=== PATIENT | female | born 1980 | race Caucasian/White ===

== ENCOUNTER 2017-03-14 12:07 | Emergency (ER) | payer OTHER ==
[~2017-03-14] VITALS: Ht 160 cm; Wt 77.1 kg
[2017-03-14 12:37] LABS: URINE BILIRUBIN NEGATIVE (Negative); URINE BLOOD NEGATIVE (Negative); URINE COLOR YELLOW; URINE GLUCOSE-RANDOM* NEGATIVE (Negative); URINE KETONES NEGATIVE (Negative); URINE PROTEIN (DIPSTICK) NEGATIVE (Negative); URINE SPECIFIC GRAVITY 1.015 (1.003-1.035); URINE UROBILINOGEN 0.2 E.U./dl (0.2-1.0)
[2017-03-14 12:50] LABS: URINE LEUKOCYTES-REFLEX 1+ (Negative)
[2017-03-14 12:57] LABS: CASTS None Seen /LPF (None Seen); SQUAMOUS >10 Many /LPF (0-3)
[2017-03-14 12:59] LABS: CRYSTALS None Seen /LPF (None Seen); URINE RBC None Seen /HPF (0-2); URINE WBC-REFLEX 6-15 Few /HPF (0-5)
[2017-03-14 13:20] LABS: ABSOLUTE NEUTROPHILS 9.6 thou/uL (1.4-8.2); BASOPHILS 0.6 % (0.0-2.0); EOSINOPHILS 1.9 % (0.0-3.0); HEMATOCRIT 45.4 % (37.0-47.0); HEMOGLOBIN 15.4 gm/dL (12.0-15.0); LYMPHOCYTES 22.8 % (24.0-44.0); MCH 31.1 pg (26.0-34.0); MCV 91.4 fL (80.0-100.0); MONOCYTES 4.9 % (1.0-8.0); PLATELET COUNT 259 thou/uL (150-400); POLYS 69.8 % (36.0-66.0); RBC 4.97 mil/uL (4.20-5.00); RDW 13.5 % (10.5-14.5); WBC 13.7 thou/uL (4.0-11.0)
[2017-03-14 13:22] LABS: MANUAL DIFF NO
[2017-03-14 13:42] LABS: CREATININE 0.8 mg/dL (0.6-1.0); POTASSIUM 4.1 mmol/L (3.5-5.1)
[2017-03-14 13:47] LABS: ALBUMIN 4.3 g/dL (3.4-5.0); TOTAL BILIRUBIN 0.5 mg/dL (<0.1-1.0); TOTAL PROTEIN 7.7 g/dL (6.4-8.2)
[2017-03-14] MEDS ORDERED: ZOFRAN ODT4 M1 PO (14:06)
[2017-03-14] MEDS ORDERED: NOHOMEMEDICATIONS (14:14)
[2017-03-14 14:29] VITALS: BP 126/69
== END 2017-03-14 14:30 | disposition home or self-care (01) ==
LOC: ER 12:07
PROVIDERS: Physician Assistant
DX: K80.50 Calculus of bile duct without cholangitis or cholecystitis without obstruction (principal); R10.11 Right upper quadrant pain; F10.99 Alcohol use, unspecified with unspecified alcohol-induced disorder

== ENCOUNTER 2017-03-20 06:48 | Day surgery (SDC) | payer OTHER ==
[~2017-03-20] VITALS: Ht 160 cm; Wt 77.1 kg
--- NOTE | ~2017-03-20 | O ---
[facility] [place] [address] OPERATIVE REPORT Name: KEITH NUNEZ Room #: DEP [facility]#: [id number] Admission: 03/20/17 Attend Phys: Varun Obregon MD, F Discharge: 03/20/17 Date of : 76 Report #: [id number] THIS REPORT FOR: //name// CC: Varun PUCKETT DATE OF SERVICE: 03/20/2017 PREOPERATIVE DIAGNOSES: Subacute and chronic cholecystitis with cholelithiasis. POSTOPERATIVE DIAGNOSES: Subacute and chronic cholecystitis with cholelithiasis. OPERATIVE PROCEDURE: Laparoscopic cholecystectomy with intraoperative cholangiogram. SURGEON: Varun Obregon MD. ER TECH: Markell Gandhi MD. SECOND CERTIFIED MEDICATION TECHNICIAN: ISAEL Majano. INDICATIONS: A 36-year-old lady with 5 days of right upper quadrant pain. An ultrasound positive for cholelithiasis. Her liver function tests are within normal limits. OPERATIVE PROCEDURE: The patient had a thorough discussion of procedure, benefits and risks in the office as well as the preoperative area. She gave informed consent to proceed. She was given preoperative IV antibiotics. She was brought to the operating room suite and had satisfactory induction of general endotracheal anesthesia. After appropriate prep and drape with DuraPrep solution, an appropriate timeout was then performed. 0.5% plain Naropin was utilized at all trocar sites, 30 mL was utilized during the procedure. Initially, an open cutdown procedure was performed to the infraumbilical port site. The 5 mm trocar was placed. Pneumoperitoneum was performed, initiated. An upper midline 5 mm trocar port was placed under direct vision. Two lateral 5 mm trocar ports were placed under direct vision. Photographs were taken and made part of the medical record. The gallbladder was retracted cephalad and laterally. The cystic duct triangle was clearly delineated. The cystic duct was milked in retrograde manner toward the gallbladder. A clip was placed toward the gallbladder. A cystotomy was performed in the cystic duct. The taut catheter was utilized to perform an intraoperative cholangiogram which demonstrated free flow of contrast in the duodenum. There were no filling defects. There was proper visualization of the common hepatic duct and the right and left hepatic ducts. The taut catheter was removed. The cystic duct was triply ligated and then divided with Sonicision. The cystic artery was [address] [address] OPERATIVE REPORT Name: KEITH NUNEZ [id number] Admission: 03/20/17 Attend Phys: Varun Obregon MD, F Discharge: 03/20/17 Date of : 76 Report #: [id number] identified, clipped proximally and divided with Sonicision. The gallbladder was resected from the fossa without difficulty. It was placed into an Endobag and removed from the peritoneal cavity, 0 PDS suture was placed in a [id number] fashion at the infraumbilical port site under direct vision. After a final inspection of the cholecystectomy site, hemostasis was complete. Photographs were taken and made part of the medical record. The trocars were then removed under direct vision. The midline infraumbilical port was removed. The 0 PDS suture ligated in place. Skin margins were approximated with subcuticular 4-0 Monocryl. Dermabond was applied. The estimated blood loss was less than 10 mL. The patient tolerated procedure well. She returned to recovery room in stable and satisfactory condition. Her desire was to go home from the Outpatient Department and this would seem appropriate at this time. <ELECTRONICALLY SIGNED> By: Varun Obregon MD, FACS 03/21/17 [id number] [id number] Varun Obregon MD, FACS /nt
--- NOTE | ~2017-03-20 | S ---
[facility] [place] [address] SURGICAL PATH RPT PROCEDURE Name: KEITH SALGADO Room #: DEP [facility]#: [id number] Admission: 03/20/17 Date of : 76 Discharge: 03/20/17 Report #: [id number] Path Case #: [id number] PATHOLOGY REPORT COLLECTION DATE: 03/20/2017 RECEIVED DATE: 03/20/2017 SUBMITTING PHYS: Dr. Varun Obregon OTHER PHYS: Xiomara Galvez SPECIMEN(S) RECEIVED: A.Gallbladder * * * * * * * * * * * * FINAL DIAGNOSIS: Gallbladder, cholecystectomy: - Mild chronic cholecystitis. - Cholelithiasis. - Cholesterolosis. PATHOLOGIST: Jena Lemus M.D. REPORT ELECTRONICALLY SIGNED BY: Jena Lemus M.D. DATE/TIME: 03/24/2017 16:08 * * * * * * * * * * * * GROSS PATHOLOGY: Received in formalin labeled "Keith Salgado gallbladder," is a 7.2 x 4.1 x 2.3 cm, previously opened gallbladder with dark green, wrinkled serosal surfaces. Opening the gallbladder reveals dark green, velvety mucosa and an average wall thickness of 0.2 cm. Calculi are present, measuring 0.1-0.3 cm in maximum dimension, possessing a light yellow and granular appearance, and feeling friable to the touch. No masses are noted grossly. Green Chain Marker sections from the body and fundus are submitted along with the proximal margin in cassette A1. (TSD; 03/21/2017) CLINICAL HISTORY: Cholecystitis/cholelithiasis INITIAL CPT CODE(S): A; 06587 Professional services performed under supervision of [facility] Learning Consultant at [address] [place] [address]. Technical services performed under supervision of [facility] Learning Consultant at [address] [place] [address], [address], [place] [address]. [address] [address] SURGICAL PATH RPT PROCEDURE Name: KEITH SALGADO Room #: DEP [facility] [place].#: [id number] Admission: 03/20/17 Date of : 76 Discharge: 03/20/17 Report #: [id number] Path Case #: [id number] [address] PHONE: [phone] DIRECTOR: Chevy Mitchell M.D. * * * END OF REPORT * * *
[~2017-03-20 06:48] MED LIST: NOHOMEMEDICATIONS; ZOFRAN ODT4 M1 PO
[2017-03-20 11:15] LABS: ABSOLUTE NEUTROPHILS 5.8 thou/uL (1.4-8.2); BASOPHILS 0.7 % (0.0-2.0); EOSINOPHILS 2.3 % (0.0-3.0); HEMATOCRIT 42.2 % (37.0-47.0); HEMOGLOBIN 14.4 gm/dL (12.0-15.0); LYMPHOCYTES 30.3 % (24.0-44.0); MCH 30.8 pg (26.0-34.0); MCHC 34.1 g/dL (28.0-37.0); MCV 90.2 fL (80.0-100.0); MONOCYTES 7.8 % (1.0-8.0); PLATELET COUNT 248 thou/uL (150-400); POLYS 58.9 % (36.0-66.0); RBC 4.68 mil/uL (4.20-5.00); RDW 13.5 % (10.5-14.5); WBC 9.9 thou/uL (4.0-11.0)
[2017-03-20 11:17] LABS: MANUAL DIFF NO
[2017-03-20 11:19] LABS: CREATININE 0.7 mg/dL (0.6-1.0); POTASSIUM 3.9 mmol/L (3.5-5.1)
[2017-03-20 11:25] LABS: ALBUMIN 3.9 g/dL (3.4-5.0); TOTAL BILIRUBIN 0.5 mg/dL (<0.1-1.0); TOTAL PROTEIN 7.1 g/dL (6.4-8.2)
[2017-03-20 11:34] VITALS: BP 135/85
[2017-03-20 15:36] VITALS: BP 135/85
== END 2017-03-20 16:40 | disposition home or self-care (01) ==
LOC: OR 06:48 → TBA 06:48 → OR 08:41
PROVIDERS: Surgery
DX: K80.12 Calculus of gallbladder with acute and chronic cholecystitis without obstruction (principal); G47.33 Obstructive sleep apnea (adult) (pediatric); Z98.890 Other specified postprocedural states
CPT/HCPCS: 50010; 50101; 50249; 50411; 50555; 50962; 51489; 51975; 52265; 53307; 53314; 54022; 54118; 55245; 55317; 56462; 56525; 56526; 62110; 62900; 70005